=== PATIENT | male | born 1950 | race Caucasian/White ===

== ENCOUNTER 2016-12-24 04:06 | Inpatient (IN) | payer OTHER, MEDICARE ==
[2016-12-24] VITALS (12 sets, daily range): BP systolic 107–159; BP diastolic 53–94; PULSE 52–74; RESP 16–18; TEMP 97.3–97.8; O2SAT 95–100
[2016-12-24] MEDS ORDERED: SODIUM CHLORIDE 0.9% FLUSH 10 ML FLUSH IVF PRN (04:15)
[2016-12-24] MEDS ORDERED: ASPIRIN 81 MG CHEW TAB PO ONE (04:15)
--- NOTE | 2016-12-24 04:18 | PD ---
HPI Chief Complaint: Cardiac Complaint Time Seen by Provider: 04:08 Travel History International Travel<30 days: No Contact w/Intl Traveler<30days: No Traveled to known affect area: No History of Present Illness HPI Patient is a 66-year-old male presents emergency department for evaluation of syncopal episode. Per the patient's she found him in the bathroom they're currently vacationing from [place]. He got up to go to the bathroom was found nearly unresponsive altered on the floor pale: Diaphoretic by her she call 911. EMS reports the patient's heart rate was initially in the low 30s in the field with blood pressures in the low 50s systolic. They gave 2 of Ativan and began pacing the patient. They placed him in a rate of 70 and his blood pressure came up to the 130s over palp. Patient stated he was feeling much better afterwards but did feel some discomfort from the shocks. He denies any chest pain denies any shortness of breath. He states he has a history of a valve replacement and was told that he may eventually need a pacemaker secondary to valve replacement. He is followed by a silver chaser at [facility]. He also relates a history of some chronic cough and congestion and feeling might be a little fluid on his heart but denies any fluid on his legs are white. Denies any shortness of breath on exertion. The patient did not receive any atropine or epinephrine in the field. PFSH Past Medical History Cardiovascular Problems: Yes Social History Tobacco Use: No Allergies-Medications (Allergen,Severity, Reaction): Coded Allergies: Ativan (Verified Allergy, Unknown, 12/24/16) PER [facility]IENT PER [facility] Reported Meds & Prescriptions Reported Meds & Active Scripts Active Reported Xanax (Alprazolam) 1 Mg Tab 1 Mg PO HS PRN Aspirin 81 Mg Chew 162 Mg CHEW DAILY Simvastatin 5 Mg Tab 5 Mg PO DAILY Omeprazole 10 Mg Cap 10 Mg PO DAILY Synthroid (Levothyroxine Sodium) 25 Mcg Tab 25 Mcg PO DAILY Hydrochlorothiazide 12.5 Mg Cap 12.5 Mg PO DAILY Benazepril (Benazepril HCl) 5 Mg Tab 5 Mg PO DAILY Review of Systems Except as stated in HPI: all other systems reviewed are Neg Physical Exam Narrative GENERAL: Well-developed well-nourished, no obvious distress. SKIN: Focused skin assessment warm/dry. HEAD: Atraumatic. Normocephalic. EYES: Pupils equal and round. No scleral icterus. No injection or drainage. ENT: No nasal bleeding or discharge. Mucous membranes pink and moist. NECK: Trachea midline. No JVD. CARDIOVASCULAR: Slightly bradycardic, normal rhythm.. No murmur appreciated. 2 + bilateral equal pulses in all 4 extremities. RESPIRATORY: No accessory muscle use. Clear to auscultation. Breath sounds equal bilaterally. GASTROINTESTINAL: Abdomen soft, non-tender, nondistended. Hepatic and splenic margins not palpable. MUSCULOSKELETAL: No obvious deformities. No clubbing. No cyanosis. No edema. NEUROLOGICAL: Awake and alert and oriented. No obvious cranial nerve deficits. Motor grossly within normal limits. Normal speech. PSYCHIATRIC: Appropriate mood and affect; insight and judgment normal. Data Data Last Documented VS Vital Signs Date Time Temp Pulse Resp B/P Pulse Ox O2 Delivery O2 Flow Rate FiO2 12/24/16 06:07 60 16 107/53 98 Nasal Cannula 3 12/24/16 04:08 97.3 Orders Electrocardiogram (12/24/16 04:08) Ckmb (Isoenzyme) Profile (12/24/16 04:08) Complete Blood Count With Diff (12/24/16 04:08) Comprehensive Metabolic Panel (12/24/16 04:08) Magnesium (Mg) (12/24/16 04:08) Prothrombin Time / Inr (Pt) (12/24/16 04:08) Act Partial Throm Time (Ptt) (12/24/16 04:08) Troponin I (12/24/16 04:08) Chest, Single Ap (12/24/16 04:08) Ecg Monitoring (12/24/16 04:08) Iv Access Insert/Monitor (12/24/16 04:08) Oximetry (12/24/16 04:08) Oxygen Administration (12/24/16 04:08) Aspirin Chew (Aspirin Chew) (12/24/16 04:15) Sodium Chloride 0.9% Flush (Ns Flush) (12/24/16 04:15) CKMB (12/24/16 04:11) CKMB% (12/24/16 04:11) Admit Order (Ed Use Only) (12/24/16 ) Labs Laboratory Tests Test 12/24/16 04:11 White Blood Count 9.2 TH/MM3 Red Blood Count 4.03 MIL/MM3 Hemoglobin 12.6 GM/DL Hematocrit 38.4 % Mean Corpuscular Volume 95.1 FL Mean Corpuscular Hemoglobin 31.2 PG Mean Corpuscular Hemoglobin 32.8 % Concent Red Cell Distribution Width 15.6 % Platelet Count 228 TH/MM3 Mean Platelet Volume 8.3 FL Neutrophils (%) (Auto) 52.9 % Lymphocytes (%) (Auto) 35.5 % Monocytes (%) (Auto) 8.4 % Eosinophils (%) (Auto) 2.2 % Basophils (%) (Auto) 1.0 % Neutrophils # (Auto) 4.9 TH/MM3 Lymphocytes # (Auto) 3.3 TH/MM3 Monocytes # (Auto) 0.8 TH/MM3 Eosinophils # (Auto) 0.2 TH/MM3 Basophils # (Auto) 0.1 TH/MM3 CBC Comment DIFF FINAL Differential Comment Prothrombin Time 11.1 SEC Prothromb Time International 1.0 RATIO Ratio Activated Partial 24.2 SEC Thromboplast Time Sodium Level 137 MEQ/L Potassium Level 3.6 MEQ/L Chloride Level 101 MEQ/L Carbon Dioxide Level 20.9 MEQ/L Anion Gap 15 MEQ/L Blood Urea Nitrogen 21 MG/DL Creatinine 1.51 MG/DL Estimat Glomerular Filtration 46 ML/MIN Rate Random Glucose 134 MG/DL Calcium Level 7.5 MG/DL Magnesium Level 1.9 MG/DL Total Bilirubin 0.3 MG/DL Aspartate Amino Transf 40 U/L (AST/SGOT) Alanine Aminotransferase 37 U/L (ALT/SGPT) Alkaline Phosphatase 50 U/L Total Creatine Kinase 131 U/L Creatine Kinase MB 2.2 NG/ML Troponin I 0.04 NG/ML Total Protein 6.1 GM/DL Albumin 2.7 GM/DL [facility] Medical Decision Making Medical Screen Exam Complete: Yes Emergency Medical Condition: Yes Interpretation(s) Patient's EKG shows sinus bradycardia rate of 54, left bundle branch block, prolonged QTC at 512, negative sgarbossa's criteria. This is an abnormal EKG. No previous for comparison but the patient is not having any chest pain. Differential Diagnosis Symptomatic bradycardia, sick sinus syndrome, syncope, electrolyte abnormality, ACS is a possibility, [place] is a possibility Narrative Course Patient roomed in the emergency department, he was transferred from EMS stretcher to the ER stretcher. While transferring him over and starting my initial evaluation the pacemaker was turned off, the patient's underlying rhythm was sinus bradycardia at a rate in the 50s. He tolerated this for the next 2 hours and 10 minutes. His initial laboratory workup shows mild elevation in creatinine 1.5, troponin 0.04, bicarbonate of 20.9 and anion gap 15. Minimal hypocalcemia. Chest x-ray reviewed by me shows sternotomy wires without any acute cardiopulmonary abnormality. Patient was reassessed multiple times in the emergency department and continues to feel well. Discussed with him that certainly am concerned for the history of bradycardia which unfortunately I do not have any rhythm strips to coincide with the EMS report. I'm concerned for the electrical health of his heart and recommend that he be admitted to the hospital for evaluation and possible pacemaker placement. The patient is agreeable. The patient was discussed with Dr. Alexandra who agrees to admit the patient to [facility] Diagnosis Primary Impression: Syncope Additional Impression: Symptomatic bradycardia Admitting Information Admitting Physician Requests: Observation Condition: Stable Martinez Doherty MD Dec 24, 2016 04:18
[2016-12-24 04:58] LABS: AUTOMATED NEUTROPHIL # 4.9 TH/MM3 (1.8-7.7); BASOPHIL # 0.1 TH/MM3 (0-0.2); EOSINOPHIL # 0.2 TH/MM3 (0-0.4); EOSINOPHIL % 2.2 % (0.0-4.0); HEMATOCRIT 38.4 % (39.0-51.0); LYMPH % 35.5 % (9.0-44.0); LYMPHOCYTE # 3.3 TH/MM3 (1.0-4.8); MEAN CELL VOLUME 95.1 FL (80.0-100.0); MEAN CORPUSCULAR HEMOGLOBIN 31.2 PG (27.0-34.0); MEAN CORPUSCULAR HGB CONC 32.8 % (32.0-36.0); MONO % 8.4 % (0.0-8.0); NEUT % 52.9 % (16.0-70.0); PLATELET COUNT 228 TH/MM3 (150-450); RED BLOOD COUNT 4.03 MIL/MM3 (4.50-5.90); RED CELL DISTRIBUTION WIDTH 15.6 % (11.6-17.2); WHITE BLOOD COUNT 9.2 TH/MM3 (4.0-11.0)
[2016-12-24 04:59] LABS: HEMO FLAGS DIFF FINAL
[2016-12-24 05:08] LABS: ALT (GPT) 37 U/L (12-78); ANION GAP 15 MEQ/L (5-15); AST (GOT) 40 U/L (15-37); BICARBONATE 20.9 MEQ/L (21.0-32.0); BLOOD UREA NITROGEN 21 MG/DL (7-18); CHLORIDE 101 MEQ/L (98-107); GLOMERULAR FILTRATION RATE 46 ML/MIN (>89); MAGNESIUM 1.9 MG/DL (1.5-2.5); POTASSIUM 3.6 MEQ/L (3.5-5.1); SODIUM (NA) 137 MEQ/L (136-145)
[2016-12-24 05:11] LABS: APTT (PATIENT) 24.2 SEC (24.3-30.1); PROTHROMBIN TIME - PATIENT 11.1 SEC (9.8-11.6)
[2016-12-24 05:12] LABS: ALKALINE PHOSPHATASE 50 U/L (45-117); CREATINE KINASE 131 U/L (39-308); TOTAL BILIRUBIN ADULT 0.3 MG/DL (0.2-1.0)
[2016-12-24 05:25] LABS: CKMB 2.2 NG/ML (0.5-3.6)
--- NOTE | 2016-12-24 06:03 | RADRPT ---
EXAM DATE/TIME: 12/24/2016 04:08 [place] COMPARISON: No previous studies available for comparison. INDICATIONS : Pt found unresponsive in bathroom floor. MEDICAL HISTORY : None. SURGICAL HISTORY : None. ENCOUNTER: Initial ACUITY: 1 day PAIN SCORE: 7/10 LOCATION: Bilateral chest FINDINGS: A single view of the chest demonstrates diminished lung volumes and minimal bibasilar densities. Stat us post CABG. The cardiomediastinal contours are unremarkable. Osseous structures are intact. CONCLUSION: Diminished lung volumes and probable bibasilar atelectasis. Vega Valentine MD on December 24, 2016 at 6:01 Board Certified Radiologist. This report was verified electronically.
[2016-12-24] MEDS ORDERED: SYNT25TA PO (06:06)
[2016-12-24] MEDS ORDERED: SIMV5TAB3 PO (06:06)
[2016-12-24] MEDS ORDERED: HYDR12.57 PO (06:06)
[2016-12-24] MEDS ORDERED: OMEP10CA PO (06:06)
[2016-12-24] MEDS ORDERED: BENA5TAB PO (06:06)
[2016-12-24] MEDS ORDERED: ASPI81CH CHEW (06:06)
[2016-12-24] MEDS ORDERED: XANA1TAB2 PO (06:15)
[2016-12-24] MEDS ORDERED: ACETAMINOPHEN/HYDROcodone 325 MG/5 MG TAB PO PRN (06:30)
[2016-12-24] MEDS ORDERED: MORPHINE SULFATE 4 MG/ML INJ IV PRN (06:30)
[2016-12-24] MEDS ORDERED: ALPRAZolam 1 MG TAB PO PRN (06:30)
[2016-12-24] MEDS ORDERED: ACETAMINOPHEN 325 MG TAB PO PRN (06:30)
[2016-12-24] MEDS ORDERED: LACTULOSE SYRUP 20 GM/30 ML CUP PO PRN (06:30)
[2016-12-24] MEDS ORDERED: SENNOSIDES 8.6 MG TAB PO PRN (06:30)
[2016-12-24] MEDS ORDERED: SODIUM CHLORIDE 0.9% FLUSH 10 ML FLUSH IV FLUSH PRN (06:30)
[2016-12-24] MEDS ORDERED: ONDANSETRON HCL 4 MG/2 ML VIAL IVP PRN (06:30)
[2016-12-24] MEDS ORDERED: MAGNESIUM HYDROXIDE SUSP 30 ML CUP PO PRN (06:30)
[2016-12-24] MEDS ORDERED: BISACODYL 10 MG SUPP RECTAL PRN (06:30)
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
[2016-12-24] MEDS: SODIUM CHLOR 0.9% 1000 ML INJ 1,000 ML IV SCH ×2 (08:09→16:21)
[2016-12-24] MEDS: ASPIRIN 81 MG CHEW TAB CHEW SCH (09:00)
[2016-12-24] MEDS: DOCUSATE SODIUM 50 MG/SENNA 8.6 MG TAB PO SCH ×2 (09:00→20:53)
[2016-12-24] MEDS: SODIUM CHLORIDE 0.9% FLUSH 10 ML FLUSH IV FLUSH SCH ×2 (09:00→20:53)
[2016-12-24] MEDS: PRAVASTATIN SOD 10 MG TAB PO SCH (09:48)
--- NOTE | 2016-12-24 12:20 | EKG ---
Date Performed: 12/24/2016 Time Performed: 04:08:43 PTAGE: 66 years EKG: SINUS BRADYCARDIA LEFT BUNDLE BRANCH BLOCK ABNORMAL ECG NO PREVIOUS TRACING DOCTOR: Stan Silva Interpretating Date/Time 12/24/2016 12:17:59
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
--- NOTE | 2016-12-24 19:42 | RADRPT ---
EXAM DATE/TIME: 12/24/2016 18:39 [place] COMPARISON: No previous studies available for comparison. INDICATIONS : Left leg swelling. MEDICAL HISTORY : Myocardial infarction. Hypercholesterolemia. Hypothyroidism. Hypertension. Gastroesophageal reflux disease. Chronic kidney disease. Arthritis. Anxiety. Hodgkins lymphoma. Chemotherapy. Radiation ther apy. Fractured pelvis x 2. Syncope. Measles. SURGICAL HISTORY : Appendectomy. Splenectomy. CABG TAVR. ENCOUNTER: Initial ACUITY: 1 day PAIN SCORE: 0/10 LOCATION: Left leg. TECHNIQUE: Venous ultrasound of the leg was performed from the inguinal ligament to the proximal calf. Real-adolph e, color Doppler and spectral tracing, compression and augmentation techniques were used. FINDINGS: There is normal compressibility of the deep venous system from the inguinal region to the proximal ca lf. No echogenic clot is seen in the lumen of the common femoral, femoral, popliteal, and posterior tibial veins. There is a normal response of the venous system to proximal and distal augmentation an d respiration. CONCLUSION: No evidence of left lower extremity DVT. Aris Fuentes MD on December 24, 2016 at 19:41 Board Certified Radiologist. This report was verified electronically.
[2016-12-24] MEDS: HEPARIN SODIUM - SQ 10,000 UNITS/ML VIAL SQ SCH (20:53)
[2016-12-25] VITALS: BP 120/58; PULSE 56; RESP 20; TEMP 97.6; O2SAT 91
[2016-12-25] MEDS: SODIUM CHLOR 0.9% 1000 ML INJ 1,000 ML IV SCH ×2 (02:21→12:21)
[2016-12-25] MEDS ORDERED: LEVOTHYROXINE SODIUM 25 MCG TAB PO SCH (06:00)
--- NOTE | 2016-12-25 06:30 | PD.CARD.PN ---
Subjective Subjective Remarks The patient is resting comfortably and denies chest pain, shortness of breath, GI symptoms or bleeding. Telemetry reveals mild sinus bradycardia with left bundle branch block. Objective Medications Reviewed Vital Signs / I&O Vital Signs Date Time Temp Pulse Resp B/P Pulse Ox O2 Delivery O2 Flow Rate FiO2 12/25/16 00:00 97.6 56 20 120/58 91 12/24/16 20:00 97.8 69 18 159/86 96 12/24/16 18:38 68 16 97 12/24/16 18:05 67 16 142/74 97 12/24/16 18:05 67 12/24/16 17:00 68 12/24/16 16:33 97.8 74 16 149/94 95 12/24/16 16:00 58 12/24/16 15:30 74 12/24/16 12:23 59 18 139/65 99 Nasal Cannula 2 12/24/16 08:29 67 18 125/66 98 Nasal Cannula 2 I/O 12/24/16 12/24/16 12/24/16 12/25/16 12/25/16 12/25/16 06:59 14:59 22:59 06:59 14:59 22:59 Intake Total 118 ml 950 ml Output Total 550 ml 250 ml Balance -432 ml 700 ml Intake Oral 118 ml 600 ml IV Total 350 ml Output Urine Total 550 ml 250 ml # Voids 2 # Bowel Movements 1 0 Physical Exam GENERAL: Well-nourished, well-developed patient in no apparent distress. SKIN: Warm and dry. NECK: JVD normal - less than or equal to 5 cm H20. CARDIOVASCULAR: Regular rate and rhythm without gallops, or rubs. 2-3/6 early peaking systolic ejection murmur at the base. RESPIRATORY: Normal breath sounds - equal bilaterally. No accessory muscle use. No wheezes, rales or rubs. PERIPHERY: No cyanosis, or edema. Laboratory Laboratory Tests Test 12/24/16 12/24/16 11:21 17:07 Troponin I 0.33 NG/ML 0.31 NG/ML Thyroid Stimulating Hormone 3.650 uIU/ML 3rd Gen Imaging Last 48 hours Impressions Chest X-Ray 12/24/16 5790 Signed Impressions: Service Date/Time: Saturday, December 24, 2016 04:08 - CONCLUSION: Diminished lung volumes and probable bibasilar atelectasis. Vega Valentine MD Lower Extremity Ultrasound 12/24/16 0000 Signed Impressions: Service Date/Time: Saturday, December 24, 2016 18:39 - CONCLUSION: No evidence of left lower extremity DVT. Aris Fuentes MD Assessment and Plan Assessment and Plan Problems: Bradycardia with syncopeI do not have a presenting rhythm strip from the paramedics. Certainly with his prior heart attacks surgery and left bundle branch block we are concerned about high degree AV block and he probably would qualify for permanent pacemaker. Mildly elevated troponinnonspecific in the setting of cardiac event but the patient does have known coronary disease. Aortic valve replacement 2 with bypass with residual aortic insufficiency. Dry cough Hypertension Hyperlipidemia Hypothyroidism Prior Hodgkin's Recommendations: The [place] [facility] and he and prefer being followed [place] there which makes sense given the complexity of his history and the fact that he is followed closely. The [facility] had no beds yesterday and hopefully they will have one for transfer today. I do have is a contact Dr.Mickey Ramirez [phone]. His troponins are mildly elevated but in the absence of chest discomfort the significance is unclear. Hold any beta blockers or AV pily blocking agents. Endocarditis prophylaxis No ambulation DVT prophylaxis The dry cough could be related to his cristian inhibitors and this may need to be changed once his cardiac status is stabilized. All questions answered. If the patient is still here tomorrow, I will have Dr. Lundberg in my group see the patient as he likely will need pacemaker and there is only somewhat delay we can accept from the [facility] given the urgency of the situation. Juan Lopez MD Dec 25, 2016 06:30
[2016-12-25 07:00] VITALS: BP 139/77; PULSE 53; PULSE 55; RESP 18; TEMP 97.8; O2SAT 97
--- NOTE | 2016-12-25 07:46 | HHI.PR ---
Subjective Remarks resting comfortably with no acute distress. no chest pain or dizziness. has occasional cough. had a good sleep last night. Objective Vitals Vital Signs Date Time Temp Pulse Resp B/P Pulse Ox O2 Delivery O2 Flow Rate FiO2 12/25/16 00:00 97.6 56 20 120/58 91 12/24/16 20:00 97.8 69 18 159/86 96 12/24/16 18:38 68 16 97 12/24/16 18:05 67 16 142/74 97 12/24/16 18:05 67 12/24/16 17:00 68 12/24/16 16:33 97.8 74 16 149/94 95 12/24/16 16:00 58 12/24/16 15:30 74 12/24/16 12:23 59 18 139/65 99 Nasal Cannula 2 12/24/16 08:29 67 18 125/66 98 Nasal Cannula 2 I/O 12/24/16 12/24/16 12/24/16 12/25/16 12/25/16 12/25/16 07:00 15:00 23:00 07:00 15:00 23:00 Intake Total 118 ml 950 ml Output Total 550 ml 250 ml Balance -432 ml 700 ml Intake Oral 118 ml 600 ml IV Total 350 ml Output Urine Total 550 ml 250 ml # Voids 2 # Bowel Movements 1 0 Result Diagram: 12/24/16 0411 12/24/16 0411 Imaging Last Impressions Chest X-Ray 12/24/16 0408 Signed Impressions: Service Date/Time: Saturday, December 24, 2016 04:08 - CONCLUSION: Diminished lung volumes and probable bibasilar atelectasis. Vega Valentine MD Lower Extremity Ultrasound 12/24/16 0000 Signed Impressions: Service Date/Time: Saturday, December 24, 2016 18:39 - CONCLUSION: No evidence of left lower extremity DVT. Aris Fuentes MD Objective Remarks GENERAL: This is a well-nourished, well-developed patient, in no apparent distress. CARDIOVASCULAR: Regular rate and regular rhythm -systolic murmur in LSB. RESPIRATORY: Clear to auscultation. Breath sounds equal bilaterally. No wheezes , rales, or rhonchi. GASTROINTESTINAL: Abdomen soft, non-tender, nondistended. Normal, active bowel sounds MUSCULOSKELETAL: Extremities without clubbing, cyanosis, or edema. NEURO: Alert & Oriented x4 to person, place, time, situation. Moves all ext x4 Procedures none Medications and IVs Current Medications Aspirin (Aspirin Chew) 324 mg ONCE ONCE PO ; Start 12/24/16 at 04:15; Stop at 04:16; Status DC Sodium Chloride 2 ml 2 ml UNSCH PRN IVF FLUSH AFTER USING IV ACCESS; Start at 04:15; Stop 12/24/16 at 06:34; Status DC Sodium Chloride (NS 1000 ml Inj) 1,000 ml @ 100 mls/hr Q10H IV Last administered on 12/25/16 02:21; Start 12/24/16 at 06:21 Sodium Chloride (NS Flush) 2 ml UNSCH PRN IV FLUSH FLUSH AFTER USING IV ACCESS ; Start 12/24/16 at 06:30 Sodium Chloride (NS Flush) 2 ml BID IV FLUSH Last administered on 12/24/16 20: 53; Start 12/24/16 at 09:00 Ondansetron HCl (Zofran Inj) 4 mg Q6H PRN IVP NAUSEA OR VOMITING; Start at 06:30 Acetaminophen (Tylenol) 650 mg Q6H PRN PO FEVER/PAIN SCALE 1 TO 2; Start at 06:30 Acetaminophen/ Hydrocodone Bitart ([place] 5-325 Mg) 1 tab Q4H PRN PO PAIN SCALE 3 TO 5; Start 12/24/16 at 06:30 Morphine Sulfate (Morphine Inj) 2 mg Q3H PRN IV Pain 6-10; Start 12/24/16 at 06 :30 Senna/Docusate Sodium (Marisa-Colace) 1 tab BID PO ; Start 12/24/16 at 09:00 Magnesium Hydroxide (Milk Of Magnesia Liq) 30 ml Q12H PRN PO MILD - MODERATE CONSTIPATION; Start 12/24/16 at 06:30 Sennosides (Senokot) 17.2 mg Q12H PRN PO MODERATE - SEVERE CONSTIPATION; Start 12/24/16 at 06:30 Bisacodyl (Dulcolax Supp) 10 mg DAILY PRN RECTAL SEVERE CONSITIPATION; Start at 06:30 Lactulose (Lactulose Liq) 30 ml DAILY PRN PO SEVERE CONSITIPATION; Start at 06:30 Alprazolam (Xanax) 1 mg HS PRN PO ANXIETY; Start 12/24/16 at 06:30 Aspirin (Aspirin Chew) 162 mg DAILY CHEW ; Start 12/24/16 at 09:00 Pravastatin Sodium (Pravachol) 10 mg DAILY PO Last administered on 12/24/16 09 :48; Start 12/24/16 at 09:00 Levothyroxine Sodium (Synthroid) 25 mcg DAILY@06 PO Last administered on 06:09; Start 12/25/16 at 06:00 Non-Formulary Medication 10 mg DAILY PO ; Start 12/25/16 at 09:00; Status UNV Valsartan (Diovan) 40 mg DAILY PO ; Start 12/25/16 at 09:00 Heparin Sodium (Porcine) (Heparin Inj) 5,000 units Q12HR SQ Last administered on 12/24/16 20:53; Start 12/24/16 at 21:00 Patient Own Medication PT OWN MED: OMEPRAZ... DAILY PO ; Start 12/25/16 at 09:00 ; Status Future Hold A/P Assessment and Plan A/P Syncope with history Aortic valve replacement 2 with bypass with residual aortic insufficiency. : Possibly secondary to symptomatic bradycardia. No complaints of chest pain or shortness of breath. -Cardiology consulted; the patient has a complex cardiac history and recommends transfer to the [facility] in [place]. May need a pacemaker. -Monitor on telemetry Cough: Chronic, dry. Chest x-ray basilar atelectasis. BNP 153. -Change JYOTI inhibitor to ARB. -Incentive spirometry Left lower extremity swelling: -venous doppler negative for DVT. JASON versus CKD: Creatinine 1.51, and a previous labs for comparison. -IVF and follow-up BMP Hypothyroidism: Chronic. Secondary radiation per patient. - TSH WNL. -Continue levothyroxine DVT prophylaxis: Heparin Discharge Planning possible transfer to [facility] for further cardiac work-up. Heather Merritt MD Dec 25, 2016 07:46
[2016-12-25 08:24] LABS: AUTOMATED NEUTROPHIL # 6.1 TH/MM3 (1.8-7.7); BASOPHIL % 0.3 % (0.0-2.0); EOSINOPHIL # 0.3 TH/MM3 (0-0.4); EOSINOPHIL % 2.7 % (0.0-4.0); HEMATOCRIT 38.3 % (39.0-51.0); HEMO FLAGS DIFF FINAL; LYMPH % 24.7 % (9.0-44.0); LYMPHOCYTE # 2.4 TH/MM3 (1.0-4.8); MEAN CELL VOLUME 93.1 FL (80.0-100.0); MEAN CORPUSCULAR HEMOGLOBIN 30.9 PG (27.0-34.0); MEAN CORPUSCULAR HGB CONC 33.2 % (32.0-36.0); MONO % 8.9 % (0.0-8.0); NEUT % 63.4 % (16.0-70.0); PLATELET COUNT 242 TH/MM3 (150-450); RED BLOOD COUNT 4.11 MIL/MM3 (4.50-5.90); RED CELL DISTRIBUTION WIDTH 15.4 % (11.6-17.2); WHITE BLOOD COUNT 9.7 TH/MM3 (4.0-11.0)
[2016-12-25] MEDS: PRAVASTATIN SOD 10 MG TAB PO SCH (08:38)
[2016-12-25] MEDS: ASPIRIN 81 MG CHEW TAB CHEW SCH (08:38)
[2016-12-25] MEDS: HEPARIN SODIUM - SQ 10,000 UNITS/ML VIAL SQ SCH (08:40)
[2016-12-25] MEDS: SODIUM CHLORIDE 0.9% FLUSH 10 ML FLUSH IV FLUSH SCH (08:42)
[2016-12-25 08:44] LABS: ALT (GPT) 32 U/L (12-78)
[2016-12-25 08:46] LABS: ALKALINE PHOSPHATASE 55 U/L (45-117); TOTAL BILIRUBIN ADULT 0.9 MG/DL (0.2-1.0)
[2016-12-25 08:48] LABS: ANION GAP 6 MEQ/L (5-15); AST (GOT) 20 U/L (15-37); BICARBONATE 26.9 MEQ/L (21.0-32.0); BLOOD UREA NITROGEN 16 MG/DL (7-18); CHLORIDE 101 MEQ/L (98-107); GLOMERULAR FILTRATION RATE 64 ML/MIN (>89); POTASSIUM 4.2 MEQ/L (3.5-5.1); SODIUM (NA) 134 MEQ/L (136-145)
[2016-12-25] MEDS ORDERED: NON-FORMULARY DRUG (Omeprazole 10 MG) PO SCH (09:00)
[2016-12-25] MEDS: DOCUSATE SODIUM 50 MG/SENNA 8.6 MG TAB PO SCH (09:00)
[2016-12-25] MEDS ORDERED: VALSARTAN 40 MG TAB PO SCH (09:00)
[2016-12-25] MEDS ORDERED: [UNRECOGNIZED DRUG - OTHER] PO SCH (09:00)
[2016-12-25 11:45] VITALS: BP 145/76; PULSE 60; PULSE 65; RESP 19; TEMP 97.8; O2SAT 98
[2016-12-25 12:00] VITALS: PULSE 60
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
[2016-12-25 13:27] VITALS: PULSE 64
[2016-12-25 14:06] VITALS: PULSE 62
== END 2016-12-25 14:10 | disposition short-term general hospital (02) | DRG 309 ==
LOC: NEPC 04:06 → NEDA 06:12 → HCVR 14:18 → OBSVTOIN 15:49 → HCIN 12-25 09:33
PROVIDERS: ADMIT Internal Medicine; ATTEND Internal Medicine
DX: R00.1 Bradycardia, unspecified (principal); J98.11 Atelectasis; Z95.2 Presence of prosthetic heart valve; Z95.1 Presence of aortocoronary bypass graft; E83.51 Hypocalcemia; I12.9 Hypertensive chronic kidney disease with stage 1 through stage 4 chronic kidney disease, or unspecified chronic kidney disease; R55 Syncope and collapse; E03.9 Hypothyroidism, unspecified; E78.5 Hyperlipidemia, unspecified; N18.9 Chronic kidney disease, unspecified; I25.2 Old myocardial infarction; I35.1 Nonrheumatic aortic (valve) insufficiency; I44.7 Left bundle-branch block, unspecified; Z85.71 Personal history of Hodgkin lymphoma; Z85.820 Personal history of malignant melanoma of skin; Z87.891 Personal history of nicotine dependence; Z90.81 Acquired absence of spleen; I25.10 Atherosclerotic heart disease of native coronary artery without angina pectoris; Z95.0 Presence of cardiac pacemaker
CPT/HCPCS: 71010; 76937; 80053; 82550; 82552; 83735; 83880; 84443; 84484; 85025; 85610; 85730; 93005; 93971; 94150; 99285; J1644; J7030